=== PATIENT | female | born 1935 | race Asian ===

== ENCOUNTER 2018-02-21 02:55 | Emergency (ER) | payer SELFPAY ==
[~2018-02-21] VITALS: Ht 152.4 cm; Wt 49.5 kg
[2018-02-21] MEDS ORDERED: ONDANSETRON HCL 4MG/2ML INJ IV ONE (04:15)
[2018-02-21] MEDS ORDERED: SODIUM CHLORIDE 0.9% 1,000 ML IV ONE (04:15)
[2018-02-21] MEDS ORDERED: ONDANSETRON 4MG ODT PO ONE (06:00)
[2018-02-21 06:01] VITALS: BP 138/62
== END 2018-02-21 06:14 | disposition home or self-care (01) ==
LOC: ER 02:55 → EDBD 02:55 → ER 06:14
DX: K52.9 Noninfective gastroenteritis and colitis, unspecified (principal); I10 Essential (primary) hypertension; R03.0 Elevated blood-pressure reading, without diagnosis of hypertension; R01.1 Cardiac murmur, unspecified
CPT/HCPCS: 96361; 96374; 99283; J2405; J7030; Q0162